=== PATIENT | female | born 1970 ===

== ENCOUNTER → 2023-08-09 09:49 | Outpatient (REF) | payer MEDICARE, SELFPAY | LOC: DHCBC HW 09:49 | PROVIDERS: ATTENDING PHYSICIAN Internal Medicine Cardiovascular Disease; FAMILY PHYSICIAN Family Medicine | DX: R07.9 Chest pain, unspecified (principal); I11.9 Hypertensive heart disease without heart failure; N18.6 End stage renal disease; I10 Essential (primary) hypertension | CPT/HCPCS: 93306 ==

== ENCOUNTER → 2023-08-14 08:08 | Outpatient (REF) | payer MEDICARE, SELFPAY | LOC: DHCBC/DCA 08:08 | PROVIDERS: ATTENDING PHYSICIAN Internal Medicine Cardiovascular Disease; FAMILY PHYSICIAN Family Medicine | DX: R07.9 Chest pain, unspecified (principal); I11.9 Hypertensive heart disease without heart failure; N18.6 End stage renal disease; I10 Essential (primary) hypertension | CPT/HCPCS: 78452; 93017; A9500; J2785 ==